=== PATIENT | male | born 1995 | race Caucasian/White ===

== ENCOUNTER 2025-03-26 21:42 | Emergency (ER) | payer SELFPAY ==
[2025-03-26 21:44] VITALS: BP 154/94; PULSE 116; RESP 19; TEMP 36.2; O2SAT 96
--- OUTSIDE RECORDS SUMMARY | 2025-03-26 22:02 | XMS_ITS | Clinical Summary ---
Author Organization [facility] Address [facility] [place] [address] Care Team Providers Care Stonecutter Hand Name Role Phone None, Provider MD Primary Care Provider Unavaila ble Allergies No known active allergies Medications No known medications Active Problems Problem Noted Date Diagnosed Date Jaw pain 08/26/2022 Resolved Problems Problem Noted Date Diagnosed Date Resolved Date Routine physical examination 05/08/2020 08/09/2020 Immunizations Immunization Administration Dates Next Due Tdap (Generic) 04/20/2020 Family History Medical History Relation Comments Diabetes Mother Relation Status Comments Mother Social History Tobacco Use Types Packs/Day Years Used Date Smoking Tobacco: Never Smokeless Tobacco: Never Alcohol Use Standard Drinks/Week Comments Yes 0 (1 standard drink = 0.6 oz pur e alcohol) PHQ-2 Answer Date Recorded PHQ-2 Score - If the patient scores above 3, please move on to questions 3-9 0 05/08/2020 Sex and Gender Information Value Date Recorded Sex Assigned at Not on file Legal Sex Male 8:11 PM CDT Gender Identity Not on file Sexual Orientation Not on file Last Filed Vital Signs Vital Sign Reading Time Taken Comments Blood Pressure 113/69 10/27/2024 3:45 PM SENIOR SSIS DEVELOPER Pulse 95 10/27/2024 1:03 PM SENIOR SSIS DEVELOPER Temperature 37.7 C (99.9 F) 10/27/2024 2:14 PM SENIOR SSIS DEVELOPER Respiratory Rate 18 10/27/2024 1:03 PM SENIOR SSIS DEVELOPER Oxygen Saturation 99% 10/27/2024 3:45 PM SENIOR SSIS DEVELOPER Inhaled Oxygen Concentration - - Weight 52.2 kg (115 lb) 10/27/2024 1:03 PM SENIOR SSIS DEVELOPER Height 165.1 cm (5' 5 ) 10/27/2024 1:03 PM SENIOR SSIS DEVELOPER Body Mass Index 19.14 10/27/2024 1:03 PM SENIOR SSIS DEVELOPER Plan of Treatment Health Maintenance Due Date Last Done Comments Hepatitis C 2014 Hepatitis B Vaccines (1 of 3 - 19+ 3-dose series) 2015 Annual Physical 05/08/2021 05/08/2020 COVID-19 Vaccine (3 - 2023-2 5 season) 2024 03/13/2021, 02/20/2021 DTaP, Tdap and Td Vaccines ( 2 - Td or Tdap) 04/20/2030 04/20/2020 HPV Vaccines Aged Out No longer eligi ble based on patient's age to complete this topic Meningococcal B Vaccine Aged Out No l onger eligible based on patient's age to complete this topic Meningococcal Vaccine Aged Out No michelle leighton eligible based on patient's age to complete this topic Pneumococcal Vaccine: Pediatrics (0 to 5 Years) and At-Risk Patients (6 to 49 Years) Aged Out No longer eligible b ased on patient's age to complete this topic RSV Immunizations Under 20 Months Aged Out No longer eligible b ased on patient's age to complete this topic Insurance [facility] Care Teams Stonecutter Hand Relationship Specialty Start Date End Date None, Provider, PCP - General UNKNOWN PHYSICIAN SPECIALTY 10/27/24
--- OUTSIDE RECORDS SUMMARY | 2025-03-26 22:02 | XMS_ITS | Continuity of Care Document ---
Author Organization [facility] Address [address] [facility] [address] [place] [address] Phone Care Team Providers Care Concrete Placement Equipment Operator Name Role Phone Ramírez Ludwig MD, José Unavailable Unavailable Allergies, Adverse Reactions, Alerts Substance Reaction Status Criticality No Known Allergies Active No Inform ation Medications Medication Instructions Dosage Effective Dates (start - stop) Status Comments oxycodone 5 mg tablet take 1 tablet by oral route every 4 - 6 hours as needed as needed 5 MG - Active This medicine is an opioid narcotic and should be used only as needed. Wean off the medication as soon as tolerated. aspirin 81 mg tablet,delayed release take 1 tablet by oral route every day 81 MG - Active Procedures Procedure Date RADEX TIBFIB 2 VIEWS POSTOP FOLLOW-UP VISIT POSTOP FOLLOW-UP VISIT Wrist Long and Short Splint OFFICE/OUTPATIENT VISIT EST REMOVAL OF SUPPORT IMPLANT RADEX TIBFIB 2 VIEWS OFFICE/OUTPATIENT VISIT EST RADEX TIBFIB 2 VIEWS OFFICE/OUTPATIENT VISIT EST RADEX TIBFIB 2 VIEWS POSTOP FOLLOW-UP VISIT RADEX TIBFIB 2 VIEWS POSTOP FOLLOW-UP VISIT TREATMENT OF TIBIA FRACTURE Advance Directives Directive Yes / No Effective Date File Name Other Directive No N/A N/A WARNING:The information contained in this section is historical and is provided for information only and does not constitute a legal document or any assurance that the information is still accurate. Please verify the information with the matamoros of the legal document before using it for clinical purposes. Encounters Encounter Description Practice Location Reason(s) For Visit Diagnoses Date Provider Providers Copied on Encounter [facility], [address] [facility] [address] [address], [place], [address], [place] tel:[phone] [facility] Unspecified fracture of shaft of right fibula, subsequent encounter for closed fracture with routine healingPain due to internal orthopedic prosthetic devices, implants and grafts, subsequent encounter 2 Ramírez Kumar. [address], [place], [place], [id number] . tel:[phone] [facility], [address] [address], [place], [address], [place] tel:[phone] [facility] Unspecified fracture of shaft of right fibula, subsequent encounter for closed fracture with routine healingPainful orthopaedic hardware Jan- 2 Ramírez Kumar. [address], [place], [place], [id number] . tel:[phone] Referring Provider: Mekhi Schmitt, [address], [place], [address]. tel:[phone] OFFICE/OUTPA TIENT VISIT EST [facility], [address] [facility] [address], [place], [address], [place] tel:[phone] [facility] Right carpal tunnel syndrome Jan-0 2 Harjeet Humphreys. [address], [place], [place], [id number] . tel:[phone] Referring Provider: Mekhi Schmitt, [address], [place], [address]. tel:[phone] [facility], [address] [address], [place], [address], [place] tel:[phone] [facility] Painful orthopaedic hardwareUnspecifi ed fracture of shaft of right fibula, subsequent encounter for closed fracture with routine healing Fe- 2 Ramírez Kumar. [address], [place], [place], [id number] . tel: [phone] OFFICE/OUTPA TIENT VISIT EST [facility], [address] [facility] [address], [place], [address], [place] tel:[phone] [facility] Closed fracture of shaft of right tibia and fibula with routine healingUnspecifie d fracture of shaft of right fibula, subsequent encounter for closed fracture with routine healingPainful orthopaedic hardware 2 Ramírez Kumar. [address], [place], [place], [id number] . tel: [phone] Referring Provider: Mekhi Schmitt, [address], [place], [place], [facility]. tel:[phone] OFFICE/OUTPA TIENT VISIT EST [facility], [address] [facility] [address], [place], [address], [place] tel:[phone] [facility] Unspecified fracture of shaft of right fibula, subsequent encounter for closed fracture with routine healingClosed fracture of shaft of right tibia and fibula with routine healing 2 Ramírez Kumar. [address], [place], [place], [id number] . tel: [phone] Referring Provider: Mekhi Schmitt, [address], [place], [address]. tel:[phone] [facility], [address] [facility] [address], [place], [address], [place] tel:[phone] [facility] Closed fracture of shaft of right tibia and fibula with routine healingUnspecifie d fracture of shaft of right fibula, subsequent encounter for closed fracture with routine healing Oct- 1 Ramírez Kumar. [address], [place], [place], [id number] . tel: [phone] Referring Provider: Mekhi Schmitt, [address], [place], [address]. tel:[phone] [facility], [address], [place], [address], [place] tel:[phone] [facility] Closed fracture of shaft of right tibia and fibula with routine healingUnspecifie d fracture of shaft of right fibula, subsequent encounter for closed fracture with routine healing 1 Ramírez Kumar. [address], [place], [place], [id number] . tel: [phone] [facility], [address], [place], [address], [place] tel:[phone] [facility] Closed fracture of shaft of right tibia, unspecified fracture morphology, initial encounterDisplace d spiral fracture of shaft of right tibia, initial encounter for closed fracture 1 Elmore Jr Kumar. [address], [place], [place], [id number] . tel: [phone] Family History Family Member Type Diagnosis Age At Onset Problem Family history of hypertensi on Payers Payer name Insurance type Covered libertarian ID Authoriza tion(s) No Information Social History Type Description Quantity Date Captured Comments Alcohol Use Details No Caffeine Use Details Tobacco Use Status Current non-smoker Smoking Status Never smoker Non-Smoking Tobacco Use Details : No Details Available : No Details Available Sex Male Vital Signs Date / Time: Height Weight BMI Pulse Rate Blood Pressure Temperature Respiratory Rate Body Surface Area Head Circumference Head Circ. Percentile Wt./David. Percentile BMI percentile Pulse Ox Inhaled Ox 4:30 PM 65.00 in 52.163 kg (115.00 lbs) 19.1 4 kg/m eter (2) Chief Complaint And Reason For Visit No Information Reason For Referral Reason For Referral No Information Plan Of Treatment Date Type Action Status Referral Ordered: RADEX TIBFIB 2 VIEWS RT ordered Referral Ordered: RADEX TIBFIB 2 VIEWS RT leg ordered History Of Present Illness Encounter Date Complaint History Of Prese nt Illness No Information Functional Status Date Functional Assessmen t No Information Instructions Date Instruction Additional Infor carmina Use as directed Related to Close d fracture of shaft of right tibia and fibula with routine healing Use as directed Related to Unspe cified fracture of shaft of right fibula, subsequent encounter for closed fracture with routine healing Rest, ice and elevate. Related t o Unspecified fracture of shaft of right fibula, subsequent encounter for closed fracture with routine healing Report increased jourdan n, swelling, numbness or discoloration. Related to Unspecified fracture of shaft of right fibula, subsequent encounter for closed fracture with routine healing Rest, ice and elevate. Related t o Unspecified fracture of shaft of right fibula, subsequent encounter for closed fracture with routine healing Cast/splint care given. Related to Unspecified fracture of shaft of right fibula, subsequent encounter for closed fracture with routine healing Report increased jourdan n, swelling, numbness or discoloration. Related to Unspecified fracture of shaft of right fibula, subsequent encounter for closed fracture with routine healing Assessments Type Assessment Date assessment Unspecified fracture of shaft of right fibula, subsequent encounter for closed fracture with routine healing assessment Pain due to internal orthopedic prosthetic devices, implants and grafts, subsequent encounter Patient Care Teams Name Effective Dates (start - stop) Status Members No Information
[2025-03-26] MEDS: SODIUM CHLORIDE 0.9% IV 1,000 ML 999 ML IV CONT ×2 (22:17→23:12)
[2025-03-26] MEDS: ONDANSETRON INJ 4 MG/2 ML VIAL IV PUSH (22:18)
[2025-03-26 22:20] LABS: Basophils Absolute Auto 0.09 K/mm3 (0.00-0.10); Basophils Percent Auto 0.9 % (0.0-1.0); Eosinophils Absolute Auto 0.05 K/mm3 (0.02-0.50); Eosinophils Percent Auto 0.5 % (1.0-6.0); Hematocrit 44.3 % (40.0-54.0); Hemoglobin 16.1 g/dL (14.0-18.0); Immature Granulocyte Absolute 0.05 K/mm3 (0.00-0.00); Immature Granulocyte Percent A 0.5 % (0.0-0.0); Lymphocytes Absolute Auto 1.05 K/mm3 (1.10-4.50); Lymphocytes Percent Auto 10.2 % (18.0-42.0); Mean Corpuscular HGB Conc 36.3 g/dL (32-36); Mean Corpuscular Hemoglobin 32.1 pg (27.0-31.0); Mean Corpuscular Volume 88.4 fL (78.0-102.0); Mean Platelet Volume 8.6 fl (8.7-11.0); Monocytes Absolute Auto 0.69 K/mm3 (0.10-0.90); Monocytes Percent Auto 6.7 % (2.0-11.0); Neutrophils Percent Auto 81.2 % (50.0-70.0); Platelet Count Result 325 K/mm3 (150-420); Red Blood Count 5.01 M/mm3 (4.70-6.10); Red Cell Distribution Width 12.5 % (11.6-14.4); White Blood Count 10.3 K/mm3 (4.8-10.8)
[2025-03-26 22:22] LABS: Add Urine Microscopic? YES; Appearance Urine Clear (Clear); Bilirubin Urine 1+ (Negative); Blood Urine Negative (Negative); Color Urine Yellow (Yellow); Glucose Urine UA Negative (Negative); Ketones Urine 1+ (Negative); Leukocyte Esterase Ur Negative LEU/UL (Negative); Nitrate Urine Negative (Negative); Protein Urine 2+ (Negative); Specific Grav Ur >= 1.030 (1.010-1.020); pH Urine 6.5 (5.0-8.0)
[2025-03-26] MEDS: LORazepam INJ (*CRX) 2 MG/ML VIAL 1 MG IV PUSH (22:23)
[2025-03-26 22:34] LABS: Amphetamine Screen Urine Negative (Negative); Barbiturate Screen Urine Negative (Negative); Benzodiazepines Screen Urine Negative (Negative); Cannabinoid Screen Urine Positive (Negative); Cocaine Screen Urine Negative (Negative); Methadone Screen Urine Negative (Negative); Opiate Screen Urine Negative (Negative); Phencyclidine Screen Urine Negative (Negative)
[2025-03-26 22:36] LABS: Alanine Aminotransferase 31 U/L (16-63); Albumin Level 4.2 g/dL (3.4-5.0); Alkaline Phosphatase 92 U/L (46-116); Anion Gap 11 mmol/L (4-12); Aspartate Amino Transferase 36 U/L (15-37); Blood Urea Nitrogen 7 mg/dL (7-18); Calcium 9.4 mg/dL (8.5-10.1); Carbon Dioxide 29 mmol/L (21-32); Chloride 99 mmol/L (98-108); Estimated CRCL calculation 62 ml/min; Estimated Glomerular Filt Rate > 60; Glucose 114 mg/dL (70-99); Magnesium 1.3 mg/dL (1.8-2.4); Osmolality Calculated 287 mOsm/kg (285-295); Potassium 3.2 mmol/L (3.5-5.1); Sodium 139 mmol/L (136-145); Total Protein 8.3 g/dL (6.4-8.2)
[2025-03-26 22:41] LABS: RBC Urine 0-2 /hpf (0-2); WBC Urine 0-3 /hpf (0-3)
[2025-03-26 22:42] LABS: Bacteria Urine Trace /hpf; Mucus Urine Few /lpf; Squamous Epithelial Cell Urine None seen /hpf (Few)
--- NOTE | 2025-03-26 23:01 | ED_ITS ---
HPI - Nausea/Vomiting/Diarrhea General Chief complaint: Nausea/Vomiting/Diarrhea Stated complaint: dehydration Time Seen by Provider: 03/26/25 21:50 Source: patient Mode of arrival: ambulatory Limitations: no limitations History of Present Illness HPI Narrative: patient is a 29-year-old male with a significant past medical history that presents today for nausea vomiting and alcohol withdrawal. Patient says that he has had some nausea vomiting but he is also having alcohol withdrawal symptoms. He says that he drinks Around 5 to 10 shots a day. he has been doing this for her about the last year. He drinks this much with his girlfriend is also here for the same thing. They both want to stop drinking cold turkey but he realized that he was having withdrawing symptoms with nausea and vomiting and some shakiness and does not want to have a seizure. MD elicited complaint: nausea and vomiting Pertinent past history: alcohol abuse Onset (ago): day(s) Description of vomiting: watery Associated nausea: Yes Associated abdominal pain: Yes Location of pain: diffuse Pain consistency: intermittent Severity: mild Quality: cramping Exacerbating factors: none Relieving factors: none Associated symptoms: loss of appetite and nausea/vomiting Related Data Allergies Allergy/AdvReac Type Severity Reaction Status Date / Time No Known Allergies Allergy Verified 03/26/25 21:51 Review of Systems 2 Review of Systems: All systems reviewed & are unremarkable except as noted in HPI and below Constitutional: Constitutional: Reports as per HPI Eyes: Eyes: Reports no additional eye complaints ENT: Reports system reviewed and no additional complaints, except as documented Cardiovascular: Cardiovascular: Reports no additional cardiovascular complaints Respiratory: Respiratory: Reports no additional respiratory complaints Gastrointestinal: Gastrointestinal: Reports as per HPI, Reports nausea and Reports vomiting Genitourinary: Genitourinary: Reports no additional male genitourinary complaints Musculoskeletal: Musculoskeletal: Reports no additional musculoskeletal complaints Integumentary/Breasts: Skin/Breast: Reports system reviewed and no additional complaints, except as docu Neurologic: Reports system reviewed and no additional complaints, except as documented Psychiatric: Psychiatric: Reports no additional psychiatric complaints Endocrine: Endocrine: Reports no additional endocrine complaints Hematologic/Lymphatic: Hematologic/Lymphatic: Reports no additional hematologic/lymphatic complaints Allergic/Immunologic: Allergic/Immunologic: Reports no additional allergic/immunologic complaints Exam 2 Const: General: healthy appearing Nutritional Appearance: well nourished Orientation/consciousness: patient oriented x3 HENMT: Head: normal to inspection Ears: external ears normal F tracy/Nose/Sinus: Normal external nose present Face and sinus: normal facial exam Mouth: Yes Normal oral and palatal mucosa present Eyes: Conjunctivae: conjunctivae normal Cornea: corneas normal Pupils: E qual, round and reactive pupils present EOM: EOMs intact bilaterally Neck: Neck: normal visual inspection Chest: Chest palpation & inspection: normal inspection of the chest Resp: Effort & Inspection: normal respiratory effort Auscultation: clear to auscultation bilaterally Cardio: Rate: regular rate Rhythm: regular rhythm GI: GI Palp: Yes Soft to palpation and Yes Tenderness to palpation present (GI) Auscultation: normal bowel sounds Back/Spine/Pelvis: Back: no CVA tenderness Skin: General skin exam: normal color Rashes: no rashes Wounds: no wounds Neuro: General: patient oriented x3 Cranial nerves: Yes Nystagmus not present Speech: normal speech Extrem: General: normal to inspection Psych: Mental Status: mental status grossly normal Affect: normal affect Attitude: cooperative Course Vital Signs Vital signs: Vital Signs Temperature 97.1 F L 03/26/25 21:44 Pulse Rate 116 H 03/26/25 21:44 Respiratory Rate 19 03/26/25 21:44 Blood Pressure 154/94 H 03/26/25 21:44 Pulse Oximetry 96 03/26/25 21:44 Oxygen Delivery Room Air 03/26/25 21:44 Temperature 97.1 F L 03/26/25 21:44 Pulse Rate 116 H 03/26/25 21:44 Respiratory Rate 19 03/26/25 21:44 Blood Pressure 154/94 H 03/26/25 21:44 Pulse Oximetry 96 03/26/25 21:44 Oxygen Delivery Room Air 03/26/25 21:44 MDM - Nausea/Vomiting/Diarrhea MDM Narrative Medical decision making narrative: Patient is on through alcohol withdrawal and will give a couple bags of fluid he is very dehydrated his magnesium and potassium is also low replace those as well. Well rehydrating him give him 1 mg of Ativan to prevent any seizures and help with withdrawals. Will probably give 1 more mg and a 2 hours after the 1st dosage as well. Will possibly send home with a Librium taper. He is very serious about quitting cold turkey and he assures me he will never drink again and so has his girlfriend who is here with him going Through the same treatment. Differential Diagnosis Differential diagnosis: Likely dehydration and other ( alcohol withdrawal) Medical Records Attestation: I reviewed the patient's medical records. Lab Data Attestation: I reviewed the patient's lab results. 03/26/25 22:17 03/26/25 22:17 Labs: Lab Results 03/26/25 Range/Units 22:17 WBC 10.3 (4.8-10.8) K/mm3 RBC 5.01 (4.70-6.10) M/mm3 Hgb 16.1 (14.0-18.0) g/dL Hct 44.3 (40.0-54.0) % MCV 88.4 (78.0-102.0) fL MCH 32.1 H (27.0-31.0) pg MCHC 36.3 H (32-36) g/dL RDW 12.5 (11.6-14.4) % Plt Count 325 (150-420) K/mm3 MPV 8.6 L (8.7-11.0) fl Immature Gran % (Auto) 0.5 H (0.0-0.0) % Neut % (Auto) 81.2 H (50.0-70.0) % Lymph % (Auto) 10.2 L (18.0-42.0) % [place] % (Auto) 6.7 (2.0-11.0) % Eos % (Auto) 0.5 L (1.0-6.0) % Baso % (Auto) 0.9 (0.0-1.0) % Lymph # (Auto) 1.05 L (1.10-4.50) K/mm3 [place] # (Auto) 0.69 (0.10-0.90) K/mm3 Eos # (Auto) 0.05 (0.02-0.50) K/mm3 Baso # (Auto) 0.09 (0.00-0.10) K/mm3 Abs Immat Gran (auto) 0.05 H (0.00-0.00) K/mm3 Absolute Neuts (auto) 8.40 H (1.70-7.20) K/mm3 Absolute Nucleated RBC 0.00 (0.00-0.00) K/mm3 Nucleated RBC % 0.0 (0-0.0) % Sodium 139 (136-145) mmol/L Potassium 3.2 L (3.5-5.1) mmol/L Chloride 99 (98-108) mmol/L Carbon Dioxide 29 (21-32) mmol/L Anion Gap 11 (4-12) mmol/L BUN 7 (7-18) mg/dL Creatinine 1.06 (0.70-1.30) mg/dL Estim Creat Clear Calc 62 ml/min Estimated GFR > 60 (59 - ) Glucose 114 H (70-99) mg/dL Calculated Osmolality 287 (285-295) mOsm/kg Calcium 9.4 (8.5-10.1) mg/dL Magnesium 1.3 L (1.8-2.4) mg/dL Total Bilirubin 1.0 (0.00-1.00) mg/dL AST 36 (15-37) U/L ALT 31 (16-63) U/L Alkaline Phosphatase 92 (46-116) U/L Total Protein 8.3 H (6.4-8.2) g/dL Albumin 4.2 (3.4-5.0) g/dL Urine Color Yellow (Yellow) Urine Appearance Clear (Clear) Urine pH 6.5 (5.0-8.0) Ur Specific [place] >= 1.030 H (1.010-1.020) Urine Protein 2+ H (Negative) Urine Glucose (UA) Negative (Negative) Urine Ketones 1+ H (Negative) Ur Blood (Man) Negative (Negative) Urine Nitrate Negative (Negative) Urine Bilirubin 1+ H (Negative) Urine Urobilinogen 1.0 (0.2-1.0) mg/dL Leukocyte Esterase Rfl Negative (Negative) NAHED/UL Urine RBC 0-2 (0-2) /hpf Urine WBC 0-3 (0-3) /hpf Ur Squamous Epith Cells None seen (Few) /hpf Urine Bacteria Trace (None) /hpf Urine Mucus Few H /lpf Urine Opiates Screen Negative (Negative) Urine Methadone Screen Negative (Negative) Ur Barbiturates Screen Negative (Negative) Ur Phencyclidine Scrn Negative (Negative) Ur Amphetamine Screen Negative (Negative) U Benzodiazepines Scrn Negative (Negative) Urine Cocaine Screen Negative (Negative) U Cannabinoids Screen Positive A (Negative) Discharge Plan Discharge Clinical Impression: Alcohol withdrawal Patient Disposition: Home Condition: Stable Instructions: Alcohol Withdrawal (ED) Additional Instructions: Taper off of librium. DO NOT DRINK ANY MORE ALCOHOL. If feeling like the urge to drink follow up immediately with PCP. Patient Language: Kenyan Prescriptions: New chlordiazepoxide HCl 10 mg capsule 10 mg PO ONCE Qty: 7 0RF Rx Instructions: Take one capsule daily x 5 days then take the last two capsules every other day. Follow-up/Referrals: Attila Gregory MD [Primary Care Provider] - Time of Disposition: 23:42
[2025-03-26] MEDS: MAGNESIUM OXIDE 400 MG TABLET PO (23:11)
[2025-03-26] MEDS: POTASSIUM CHLORIDE 20 MEQ ER TABLET 40 MEQ PO (23:11)
[2025-03-27 00:25] VITALS: BP 131/75; PULSE 86; RESP 16; O2SAT 97
== END 2025-03-27 00:25 | disposition home or self-care (01) ==
PROVIDERS: Emergency Provider Family Medicine; PCP Family Medicine
DX: R11.2 Nausea with vomiting, unspecified (principal)
CPT/HCPCS: 36415; 80053; 80307; 81001; 83735; 85025; 96361; 96374; 96375; 99284; A9270; J2060; J2405; J7030